=== PATIENT | male | born 1950 | race African-American/Black ===

== ENCOUNTER 2017-03-26 13:15 | Emergency (ER) | payer MEDICARE, BC ==
[2017-03-26 13:44] VITALS: BP 158/83
--- NOTE | 2017-03-26 14:04 | UC ---
Lower Extremity/Ankle HPI - HPI Summary HPI Summary: left thigh pain x 1 day s/p fall this morning felt something tear on his left thigh + pain , no swelling , no erythema - History of Current Complaint Chief Complaint: UCLowerExtremity Stated Complaint: LEFT THIGH INJURY Time Seen by Provider: 03/26/17 13:49 Hx Obtained From: Patient Onset/Duration: Sudden Onset, Lasting Hours - 3, Still Present Severity Initially: Moderate Severity Currently: Moderate Aggravating Factor(s): Standing, Ambulation Alleviating Factor(s): Rest, Elevation, Ice Able to Bear Weight: Yes - Allergies/Home Medications Allergies/Adverse Reactions: Allergies Allergy/AdvReac Type Severity Reaction Status Date / Time Amoxicillin Allergy Rash Verified 03/26/17 13:44 Penicillins Allergy Rash Verified 03/26/17 13:44 PMH/Surg Hx/FS Hx/Imm Hx - Additional Past Medical History Additional PMH: hx of MRSA of right leg s/p AKA - Surgical History Surgical History: Yes Surgery Procedure, Year, and Place: L wrist x2, R leg surgery x2 2013, tonsilectomy - Family History Known Family History: Negative: Diabetes - Social History Alcohol Use: None Substance Use Type: None Smoking Status (MU): Heavy Every Day Tobacco Smoker Type: Cigarettes Amount Used/How Often: 1 pack day Review of Systems Constitutional: Negative Skin: Negative Eyes: Negative ENT: Negative Respiratory: Negative Cardiovascular: Negative Gastrointestinal: Negative Genitourinary: Negative Motor: Negative Neurovascular: Negative Musculoskeletal: Negative Neurological: Negative Psychological: Negative All Other Systems Reviewed And Are Negative: Yes Physical Exam Triage Information Reviewed: Yes Appearance: Well-Appearing, No Pain Distress, Well-Nourished Vital Signs: Initial Vital Signs Temp 98.5 F 03/26/17 13:37 Pulse 56 03/26/17 13:37 Resp 16 03/26/17 13:37 BP 158/83 03/26/17 13:37 Pulse Ox 98 03/26/17 13:37 Vital Signs Reviewed: Yes Eyes: Positive: Conjunctiva Clear ENT: Positive: Normal ENT inspection, Hearing grossly normal, Pharynx normal Neck exam: Normal Neck: Positive: Supple, Nontender, No Lymphadenopathy Respiratory: Positive: Chest non-tender, Lungs clear, Normal breath sounds Cardiovascular: Positive: RRR, No Murmur, Pulses Normal Musculoskeletal: Positive: Other: - right leg: AKA left leg / thigh, no swelling , no hematom, mild tenderness, good ROM , normal strength of the thigh Lower Extremity Course/Dx - Differential Dx/Diagnosis Provider Diagnoses: strain left thigh Discharge - Discharge Plan Condition: Stable Disposition: HOME Patient Education Materials: Muscle Strain (ED) Referrals: Chandrakant Garcia MD [Primary Care Provider] - If Needed Additional Instructions: cont. with rest, ice, take ibuprofen as needed for pain
== END 2017-03-26 14:16 | disposition home or self-care (01) ==
LOC: UCCORT 13:15
DX: S76.912A Strain of unspecified muscles, fascia and tendons at thigh level, left thigh, initial encounter (principal); W19.XXXA Unspecified fall, initial encounter; Y93.9 Activity, unspecified; Y92.9 Unspecified place or not applicable; Z86.14 Personal history of Methicillin resistant Staphylococcus aureus infection; Z88.0 Allergy status to penicillin; F17.210 Nicotine dependence, cigarettes, uncomplicated
CPT/HCPCS: 99211; G0463

== ENCOUNTER 2018-02-28 09:07 | Emergency (ER) | payer MEDICARE, BC ==
[2018-02-28 09:59] VITALS: BP 118/72
--- NOTE | 2018-02-28 10:13 | UC ---
Abdominal Pain Male HPI - HPI Summary HPI Summary: 67 yo male with fatigue x 1 week feverish and chills x 2-3 days worsening of his chronic cough stomach doesn't feel right but no pain no uti symptoms - History of Current Complaint Chief Complaint: UCGeneralIllness Stated Complaint: FATIGUE, STOMACH COMPLAINT Time Seen by Provider: 02/28/18 10:11 Hx Obtained From: Patient Onset/Duration: Gradual Onset, Lasting Days Timing: Constant Severity Initially: Mild Severity Currently: Moderate Pain Intensity: 0 Pain Scale Used: 0-10 Numeric Location: Other - no pain Radiates: No Alleviating Factor(s): Nothing Associated Signs And Symptoms: Positive: Fever - Allergies/Home Medications Allergies/Adverse Reactions: Allergies Allergy/AdvReac Type Severity Reaction Status Date / Time amoxicillin Allergy Rash Verified 02/28/18 09:45 Penicillins Allergy Rash Verified 02/28/18 09:45 Home Medications: Home Medications Metoprolol Succinate XL TAB* [Toprol XL TAB*] 50 mg PO DAILY 02/28/18 [History Confirmed 02/28/18] Pantoprazole TAB (NF) [Protonix TAB (NF)] 40 mg PO DAILY 02/28/18 [History Confirmed 02/28/18] Polyethylene Glycol 3350* [Miralax*] 17 gm PO DAILY 02/28/18 [History Confirmed 02/28/18] amLODIPine TAB* [Norvasc 5 mg TAB*] 10 mg PO DAILY 02/28/18 [History Confirmed 02/28/18] PMH/Surg Hx/FS Hx/Imm Hx Previously Healthy: Yes Endocrine History: Dyslipidemia Cardiovascular History: Hypertension, Other Other Cardiovascular History: peripheral vascular disease Respiratory History: COPD, Pneumonia - Surgical History Surgical History: Yes Surgery Procedure, Year, and Place: Right Leg Above the Knee Amputation d/t MRSA and Sepsis, 2013, [facility]; Tonsillectomy, Left Wrist x 2 - Family History Known Family History: Positive: Cardiac Disease, Hypertension Negative: Diabetes - Social History Alcohol Use: None Substance Use Type: None Smoking Status (MU): Heavy Every Day Tobacco Smoker Type: Cigarettes Amount Used/How Often: 1 PPD Length of Time of Smoking/Using Tobacco: Since Age 19 Cessation Counseling: Patient Advised to Stop Review of Systems Constitutional: Negative Skin: Negative Eyes: Negative ENT: Negative Respiratory: Cough Cardiovascular: Negative Gastrointestinal: Negative Genitourinary: Negative Motor: Negative Neurovascular: Negative Musculoskeletal: Negative Neurological: Negative Psychological: Negative Is Patient Immunocompromised?: No All Other Systems Reviewed And Are Negative: Yes Physical Exam Triage Information Reviewed: Yes Appearance: Well-Appearing, No Pain Distress, Well-Nourished Vital Signs: Initial Vital Signs Temp 98.1 F 02/28/18 09:41 Pulse 54 02/28/18 09:41 Resp 16 02/28/18 09:41 BP 208/182 02/28/18 09:41 Pulse Ox 100 02/28/18 09:41 Eyes: Positive: Conjunctiva Clear, Conjunctiva Inflamed ENT: Negative: Hearing grossly normal, Nasal congestion, Nasal drainage, Trismus , Muffled voice, Hoarse voice Dental: Negative: Abscess @ Neck: Positive: Supple, Nontender Respiratory: Positive: No respiratory distress, No accessory muscle use, Wheezing Cardiovascular: Positive: RRR, No Murmur Abdomen Description: Positive: Nontender, Soft. Negative: CVA Tenderness (R), CVA Tenderness (L), Distended, Guarding Bowel Sounds: Positive: Present Musculoskeletal: Positive: Other: - right Neurological: Positive: Alert Psychological Exam: Normal Skin Exam: Normal Diagnostics - Laboratory Diagnostic Studies Completed/Ordered: urine dip - for leuks/nitrite - Radiology No standard instances Xray Interpretation: No Acute Changes - stigmata oc copd Radiology Interpretation Completed By: Radiologist Abd Pain Male Course/Dx - Differential Dx/Clinical Impression Provider Diagnoses: acute exacerbation of COPD Discharge - Sign-Out/Discharge Documenting (check all that apply): Discharge/Admit/Transfer - Discharge Plan Condition: Stable Disposition: HOME Prescriptions: DOXYcycline CAP(*) [DOXYcycline 100MG CAP(*)] 100 mg PO BID #14 cap predniSONE [Deltasone] 40 mg PO DAILY #10 tab Patient Education Materials: Acute Bronchitis (ED) Referrals: Chandrakant Garcia MD [Primary Care Provider] - 5 Days Additional Instructions: albuterol inhaler 2 puffs 4x day for 7 days - Billing Disposition and Condition Condition: STABLE Disposition: HOME
--- NOTE | 2018-02-28 10:47 | RAD ---
INDICATION: Cough and fatigue. COMPARISON: Comparison is made with a prior chest x-ray study from April 11, 2005. TECHNIQUE: Dual-energy PA and lateral views of the chest were obtained. FINDINGS: The heart is within normal limits in size. Mediastinal and hilar contours appear within normal limits. The lungs are hyperinflated and clear. No pleural effusion is seen. There is flattening of the diaphragms consistent with chronic obstructive pulmonary disease. There is a focal calcific density which projects over the anterior right sixth rib and posterior eighth rib likely representing an old rib fracture. IMPRESSION: FINDINGS CONSISTENT WITH COPD, NO EVIDENCE FOR ACUTE FINDING.
[2018-02-28] MEDS ORDERED: Albuterol HFA INHALER* 8 gm MDI INH ONE (11:25)
== END 2018-02-28 11:53 | disposition home or self-care (01) ==
LOC: UCCORT 09:07
DX: J44.1 Chronic obstructive pulmonary disease with (acute) exacerbation (principal); F17.210 Nicotine dependence, cigarettes, uncomplicated; Z88.3 Allergy status to other anti-infective agents; Z88.0 Allergy status to penicillin
CPT/HCPCS: 71046; 81003; 99213; A9270-GY; G0463